=== PATIENT | male | born 1960 | race Caucasian/White ===

== ENCOUNTER 2017-08-13 12:05 | Day surgery (SDC) | payer MEDICARE ==
[2017-08-10 12:43] LABS: BASOPHILS % (AUTO) 0.3 % (0-1); EOSINOPHILS # (AUTO) 0.3 X10'3 (0-0.9); EOSINOPHILS % (AUTO) 3.7 % (0-6); HEMATOCRIT 51.3 % (42.0-52.0); LYMPHOCYTES # (AUTO) 1.3 X10'3 (1.1-4.8); LYMPHOCYTES % (AUTO) 14.4 % (21-51); MEAN CORPUSCULAR HEMOGLOBIN 25.6 PG (27.0-31.0); MEAN CORPUSCULAR HGB CONC 33.2 % (33.0-36.5); MONOCYTES # (AUTO) 0.5 X10'3 (0-0.9); MONOCYTES % (AUTO) 5.2 % (2-12); NEUTROPHILS % (AUTO) 76.4 % (42-75); PLATELET COUNT 261 X10'3 (140-440); RED BLOOD COUNT 6.65 X10'6 (4.70-6.10); RED CELL DISTRIBUTION WIDTH 16.6 % (11.5-14.5); WHITE BLOOD COUNT 9.1 X10'3 (4.5-11.0)
[2017-08-10 12:52] LABS: PARTIAL THROMBOPLASTIN TIME 27 SECONDS (22-32); PROTHROMBIN TIME 10.6 SECONDS (9.0-12.0)
[2017-08-10 12:53] LABS: ALBUMIN 3.9 G/DL (3.4-5.0); ANION GAP 10 (8-16); BLOOD UREA NITROGEN 25 MG/DL (7-18); BUN/CREATININE RATIO 17.1 (5.4-32.0); CALCIUM 9.7 MG/DL (8.5-10.1); CHLORIDE 101 MMOL/L (99-107); CREATININE 1.46 MG/DL (0.60-1.10); GLUCOSE 198 MG/DL (70-104); POTASSIUM 5.2 MMOL/L (3.5-5.1); SODIUM 136 MMOL/L (135-145); TOTAL CARBON DIOXIDE 25.2 MMOL/L (24-32); eGFR 50 ML/MIN
[2017-08-13] VITALS (8 sets, daily range): BP systolic 99–137; BP diastolic 53–89
[~2017-08-13] VITALS: Ht 182.9 cm; Wt 140.0 kg
[~2017-08-13 12:05] MED LIST: ASPI-1071 PO; CALC-793 PO; CANA300T PO; CETI10TA15 PO; DOCU-267 PO; DOCU100C40 PO; ESCI10TA PO; FENO145T38 PO; FISH12002 PO; FLEC100T PO; FLO0.4C PO; FLUT16SP2 BOTHNARES; FLUT1DIS INH; FURO40TA4 PO; GABA-330 PO; INSU100V13 SQ; LANTUS SQ; LIDO700A5 TP; LORA1TAB PO; METF500T7 PO; METO100T7 PO; NITR0.4T SL; NOR5T PO; OXYC-150 PO; OXYC40TA39 PO; PRAV40TA65 PO; WEL625T PO
[2017-08-13] MEDS ORDERED: diphenhydrAMINE 25mg capsule PO PRN (12:30)
[2017-08-13] MEDS ORDERED: normal saline 1000ml 1,000 ML IV SCH ×2 (12:30→16:08)
[2017-08-13] MEDS ORDERED: LORazepam 0.5 MG tablet PO PRN (12:30)
[2017-08-13] MEDS ORDERED: TEST200V IM (14:16)
[2017-08-13] MEDS ORDERED: ALB0.5UD IH (14:16)
[2017-08-13] MEDS ORDERED: OXYC15TA88 PO (14:16)
[2017-08-13] MEDS ORDERED: MULT-38 PO (14:16)
[2017-08-13] MEDS ORDERED: GENT30CR TOP (14:16)
[2017-08-13] MEDS ORDERED: UBID100C16 PO (14:16)
[2017-08-13] MEDS ORDERED: DAPA10TA PO (14:16)
[2017-08-13] MEDS ORDERED: GABA600T2 PO (14:16)
[2017-08-13] MEDS ORDERED: LISI2.5T2 PO (14:16)
[2017-08-13] MEDS ORDERED: POTA8TAB8 PO (14:16)
[2017-08-13] MEDS ORDERED: FAMO40TA7 PO (14:16)
[2017-08-13] MEDS ORDERED: LACT1CAP65 PO (14:16)
[2017-08-13] MEDS ORDERED: OMEG1CAP13 PO (14:16)
[2017-08-13] MEDS ORDERED: LIDOcaine 1%/PF (10mg/ml) 5ml vial ONE ×2 (14:19)
[2017-08-13] MEDS ORDERED: iohexol 350MG/ML 100ml bottle IV ONE (14:19)
[2017-08-13] MEDS ORDERED: LIDOcaine 1% 30ml vial 30 ML ONE (14:36)
[2017-08-13] MEDS ORDERED: fentaNYL/PF 50MCG/1 ML 2ML syringe ONE (14:59)
[2017-08-13] MEDS ORDERED: proCHLORperazine 10 MG/2 ml inj ONE (14:59)
[2017-08-13] MEDS ORDERED: midazolam 2 mg/2 ml injection ONE (14:59)
[2017-08-13] MEDS ORDERED: proCHLORperazine 10 MG/2 ml inj IV PRN (16:10)
[2017-08-13] MEDS ORDERED: HYDROcodone/acetaminophen 10/325mg tab PO PRN (16:10)
[2017-08-13] MEDS ORDERED: ondansetron/PF 4mg/2ml inj IV PRN (16:20)
[2017-08-13] MEDS ORDERED: OXAZEpam 15mg capsule PO PRN (16:20)
[2017-08-13] MEDS ORDERED: HYDROcodone/acetaminophen 5mg/325mg tablet PO PRN (16:25)
== END 2017-08-13 18:00 | disposition home or self-care (01) ==
LOC: SSTAY O 12:05
PROVIDERS: ATTEND Internal Medicine Interventional Cardiology
DX: I25.10 Atherosclerotic heart disease of native coronary artery without angina pectoris (principal); J44.9 Chronic obstructive pulmonary disease, unspecified; I11.0 Hypertensive heart disease with heart failure; I50.32 Chronic diastolic (congestive) heart failure; E78.5 Hyperlipidemia, unspecified; I27.20 Pulmonary hypertension, unspecified; G47.33 Obstructive sleep apnea (adult) (pediatric); F32.9 Major depressive disorder, single episode, unspecified; F41.9 Anxiety disorder, unspecified; I08.0 Rheumatic disorders of both mitral and aortic valves; I49.5 Sick sinus syndrome; I48.0 Paroxysmal atrial fibrillation; K21.9 Gastro-esophageal reflux disease without esophagitis; E11.40 Type 2 diabetes mellitus with diabetic neuropathy, unspecified; Z79.82 Long term (current) use of aspirin; Z87.891 Personal history of nicotine dependence; M19.90 Unspecified osteoarthritis, unspecified site; Z85.53 Personal history of malignant neoplasm of renal pelvis; Z95.0 Presence of cardiac pacemaker; Z90.5 Acquired absence of kidney; Z88.1 Allergy status to other antibiotic agents; Z88.6 Allergy status to analgesic agent; Z79.4 Long term (current) use of insulin; Z79.899 Other long term (current) drug therapy; Z86.79 Personal history of other diseases of the circulatory system; Z98.890 Other specified postprocedural states; Z88.8 Allergy status to other drugs, medicaments and biological substances
CPT/HCPCS: 36415; 80048; 82948; 85025; 85610; 85730; 93458; 99152; 99153; A6257; C1769; J0780; J1644; J2001; J2250; J3010; J3490; J7030; Q9967; A4620; Q0163

== ENCOUNTER 2017-10-09 13:29 | Inpatient (IN) | payer MEDICARE ==
[~2017-10-09] VITALS: Ht 182.9 cm; Wt 129.3 kg
[~2017-10-09 13:29] MED LIST changes: +ALB0.5UD IH; -CALC-793 PO; -CANA300T PO; +DAPA10TA PO; -DOCU100C40 PO; +FAMO40TA7 PO; -FISH12002 PO; -GABA-330 PO; +GABA600T2 PO; +GENT30CR TOP; +LACT1CAP65 PO; -LIDO700A5 TP; +LISI2.5T2 PO; -METF500T7 PO; +MULT-38 PO; +OMEG1CAP13 PO; -OXYC-150 PO; +OXYC15TA88 PO; +POTA8TAB8 PO; +TEST200V IM; +UBID100C16 PO
[2017-10-09 13:58] LABS: BASOPHILS % (AUTO) 0.1 % (0-1); EOSINOPHILS # (AUTO) 0.2 X10'3 (0-0.9); EOSINOPHILS % (AUTO) 2.4 % (0-6); HEMATOCRIT 40.9 % (42.0-52.0); HEMOGLOBIN 13.4 g/dl (14.0-17.9); LYMPHOCYTES # (AUTO) 0.6 X10'3 (1.1-4.8); LYMPHOCYTES % (AUTO) 7.2 % (21-51); MEAN CORPUSCULAR HEMOGLOBIN 25.5 PG (27.0-31.0); MEAN CORPUSCULAR HGB CONC 32.8 % (33.0-36.5); MEAN CORPUSCULAR VOLUME 77.7 FL (78-98); MEAN PLATELET VOLUME 8.8 FL (7.4-10.4); MONOCYTES # (AUTO) 0.8 X10'3 (0-0.9); NEUTROPHILS # (AUTO) 6.9 X10'3 (1.8-7.7); NEUTROPHILS % (AUTO) 81.3 % (42-75); PLATELET COUNT 224 X10'3 (140-440); RED BLOOD COUNT 5.26 X10'6 (4.70-6.10); RED CELL DISTRIBUTION WIDTH 17.5 % (11.5-14.5); WHITE BLOOD COUNT 8.5 X10'3 (4.5-11.0)
[2017-10-09 14:08] LABS: INR 1.1 INR; PARTIAL THROMBOPLASTIN TIME 28 SECONDS (22-32); PROTHROMBIN TIME 11.7 SECONDS (9.0-12.0)
[2017-10-09 14:13] LABS: ALANINE AMINOTRANSFERASE 27 U/L (12-78); ALBUMIN 3.4 G/DL (3.4-5.0); ALBUMIN/GLOBULIN RATIO 0.7 (1.1-1.5); ALKALINE PHOSPHATASE 80 IU/L (46-116); ANION GAP 11 (8-16); ASPARTATE AMINO TRANSFERASE 21 U/L (10-37); BILIRUBIN,TOTAL 0.5 MG/DL (0.1-1.0); BLOOD UREA NITROGEN 57 MG/DL (7-18); BUN/CREATININE RATIO 25.7 (5.4-32.0); CALCIUM 8.7 MG/DL (8.5-10.1); CHLORIDE 98 MMOL/L (99-107); CREATININE 2.22 MG/DL (0.60-1.10); GLUCOSE 191 MG/DL (70-104); POTASSIUM 5.2 MMOL/L (3.5-5.1); SODIUM 135 MMOL/L (135-145); TOTAL CARBON DIOXIDE 26.5 MMOL/L (24-32); TOTAL PROTEIN 8.3 G/DL (6.4-8.2); eGFR 31 ML/MIN
[2017-10-09] MEDS ORDERED: furosemide 10 MG/1 ML 10ml inj IV ONE ×2 (14:20→23:10)
[2017-10-09 15:08] LABS: MAGNESIUM 2.2 MG/DL (1.5-2.4)
[2017-10-09] MEDS ORDERED: dextrose ORAL solution 15 GM/59 ML bottle PO PRN ×2 (16:00)
[2017-10-09] MEDS ORDERED: magnesium hydroxide 30ml (MOM) UD suspension PO PRN (16:00)
[2017-10-09] MEDS ORDERED: potassium Cl 20 mEq SR tablet PO PRN ×2 (16:00)
[2017-10-09] MEDS ORDERED: HYDROcodone/acetaminophen 5mg/325mg tablet PO PRN (16:00)
[2017-10-09] MEDS ORDERED: morphine 4 MG/ML inj SYRINge IV PRN (16:00)
[2017-10-09] MEDS ORDERED: magnesium 2GM in 50ml NS 50 ML IV PRN (16:00)
[2017-10-09] MEDS ORDERED: glucagon, human recombinant 1mg kit SUBCUT PRN (16:00)
[2017-10-09] MEDS ORDERED: potassium Cl 40MEQ/NS 500ml 500 ML IV PRN ×2 (16:00)
[2017-10-09] MEDS ORDERED: dextrose 50%-water 50ml dispensing syringe IV PRN ×2 (16:00)
[2017-10-09] MEDS ORDERED: HYDROcodone/acetaminophen 10/325mg tab PO PRN (16:00)
[2017-10-09] MEDS ORDERED: magnesium 4gm in 100ml NS 100 ML IV PRN (16:00)
[2017-10-09] MEDS ORDERED: acetaminophen 325mg tablet PO PRN ×2 (16:00)
[2017-10-09] MEDS ORDERED: MESSAGE TO PHARMACY PO ONE (16:00)
[2017-10-09] MEDS: furosemide 10 MG/1 ML 10ml inj IV SCH (16:00)
[2017-10-09] MEDS ORDERED: mag hydrox/Alum hydrox/simeth 30ml oral suspension PO PRN (16:00)
[2017-10-09] MEDS ORDERED: ondansetron/PF 4mg/2ml inj IV PRN (16:00)
[2017-10-09] MEDS ORDERED: magnesium Cl slow-release 64mg tablet PO PRN (16:00)
[2017-10-09] MEDS ORDERED: ERGO500014 PO (16:26)
[2017-10-09] MEDS ORDERED: ICOS1CAP PO (16:28)
[2017-10-09] MEDS ORDERED: INSU100V9 SQ (16:30)
[2017-10-09] MEDS ORDERED: OXYC-658 PO (16:30)
[2017-10-09] MEDS ORDERED: nitroGLYCERIN 0.4mg SUBLingual tab SL PRN (16:35)
[2017-10-09 18:59] LABS: HEMOGLOBIN A1C 7.6 % (4.5-6.2)
[2017-10-09] MEDS: colesevelam 625mg tablet PO SCH (20:00)
[2017-10-09] MEDS: insulin glargine (Lantus) pen - multi-dose SQ SCH (20:00)
[2017-10-09] MEDS: ICOSAPENT ETHYL 1 GM PO SCH (20:00)
[2017-10-09] MEDS: gabapentin 400mg capsule PO SCH (20:20)
[2017-10-09] MEDS: docusate sod 100mg capsule PO SCH (20:20)
[2017-10-09] MEDS: oxyCODONE SR 40mg (sust release) tab PO SCH (20:21)
[2017-10-09] MEDS: heparin, porcine 5000 units/ml vial SQ SCH (20:21)
[2017-10-09] MEDS: fenofibrate 145mg tablet PO SCH (20:22)
[2017-10-09] MEDS: flecainide 50mg tablet PO SCH (20:23)
[2017-10-09] MEDS ORDERED: tamsulosin 0.4mg capsule PO SCH (21:00)
[2017-10-09] MEDS ORDERED: insulin glargine (Lantus) pen - multi-dose SQ SCH (21:00)
[2017-10-09] MEDS: albuterol 2.5 MG/3 ML nebule NEB PRN (23:07)
[2017-10-09 23:40] LABS: ABG BASE EXCESS 0.5 mmol/L (-2.0-3.0); ABG HCO3 23.6 mmol/L (22.0-26.0); ABG PCO2 (T) 35.6 mmHg (35.0-48.0); ABG PH (T) 7.445 (7.350-7.450); ABG PO2 (T) 99.1 mmHg (83-108); ALLEN'S TEST Positive; FCOHb 0.8 % (0.5-1.5); FMetHb 0.1 % (0.3-1.12); FO2Hb 96.1 % (94-100); MINUTE VOLUME 14 L/min; PATIENT TEMPERATURE 38.3; RESPIRATORY RATE 10 b/min; RESPIRATORY RATE (OBSERVED) 19 b/min; TOTAL HEMOGLOBIN 13.7 G/dl (14.0-18.0)
[2017-10-10] MEDS: oxyCODONE IR 5mg (immed. release) tablet PO PRN ×4 (00:31→21:22)
[2017-10-10 01:58] LABS: BASOPHILS % (AUTO) 0.1 % (0-1); EOSINOPHILS # (AUTO) 0.3 X10'3 (0-0.9); EOSINOPHILS % (AUTO) 3.1 % (0-6); HEMATOCRIT 40.7 % (42.0-52.0); HEMOGLOBIN 13.5 g/dl (14.0-17.9); LYMPHOCYTES # (AUTO) 0.7 X10'3 (1.1-4.8); LYMPHOCYTES % (AUTO) 6.3 % (21-51); MEAN CORPUSCULAR HEMOGLOBIN 25.7 PG (27.0-31.0); MEAN CORPUSCULAR HGB CONC 33.1 % (33.0-36.5); MEAN CORPUSCULAR VOLUME 77.7 FL (78-98); MEAN PLATELET VOLUME 8.4 FL (7.4-10.4); MONOCYTES % (AUTO) 9.2 % (2-12); NEUTROPHILS # (AUTO) 8.6 X10'3 (1.8-7.7); NEUTROPHILS % (AUTO) 81.3 % (42-75); PLATELET COUNT 231 X10'3 (140-440); RED BLOOD COUNT 5.24 X10'6 (4.70-6.10); RED CELL DISTRIBUTION WIDTH 17.7 % (11.5-14.5); WHITE BLOOD COUNT 10.6 X10'3 (4.5-11.0)
[2017-10-10 02:14] LABS: ALBUMIN 3.4 G/DL (3.4-5.0); ANION GAP 7 (8-16); BLOOD UREA NITROGEN 55 MG/DL (7-18); BUN/CREATININE RATIO 28.4 (5.4-32.0); CALCIUM 8.8 MG/DL (8.5-10.1); CHLORIDE 98 MMOL/L (99-107); CREATININE 1.94 MG/DL (0.60-1.10); GLUCOSE 145 MG/DL (70-104); MAGNESIUM 2.1 MG/DL (1.5-2.4); POTASSIUM 5.1 MMOL/L (3.5-5.1); SODIUM 137 MMOL/L (135-145); TOTAL CARBON DIOXIDE 32.4 MMOL/L (24-32); eGFR 36 ML/MIN
[2017-10-10] MEDS: oxyCODONE SR 40mg (sust release) tab PO SCH ×4 (04:42→21:38)
[2017-10-10] MEDS ORDERED: non-formulary drug (Ubidecarenone (Coq-10) 100 MG) PO SCH (08:00)
[2017-10-10] MEDS: colesevelam 625mg tablet PO SCH (08:00)
[2017-10-10] MEDS ORDERED: [UNRECOGNIZED DRUG - OTHER] PO SCH (08:00)
[2017-10-10] MEDS: K and/or MAG REPLACEMENT MC SCH (08:00)
[2017-10-10] MEDS: ICOSAPENT ETHYL 1 GM PO SCH (08:00)
[2017-10-10] MEDS: furosemide 10 MG/1 ML 10ml inj IV SCH ×3 (09:09→16:24)
[2017-10-10] MEDS: ertapenem sod inj 1 GM in normal saline 100ml IV soln 100 ML IV SCH (09:09)
[2017-10-10] MEDS: heparin, porcine 5000 units/ml vial SQ SCH ×2 (09:09→21:23)
[2017-10-10] MEDS: lisinopril 2.5mg tablet PO SCH (09:10)
[2017-10-10] MEDS: docusate sod 100mg capsule PO SCH ×2 (09:11→21:21)
[2017-10-10] MEDS: famotidine 20mg tablet PO SCH (09:11)
[2017-10-10] MEDS: multivitamins, therapeutics tablet PO SCH (09:11)
[2017-10-10] MEDS: aspirin 81mg tablet.DR PO SCH (09:11)
[2017-10-10] MEDS: lactobacillus rhamnosus 10,000 MMU CELLS/CAPSULE PO SCH (09:11)
[2017-10-10] MEDS: citalopram 20mg tablet PO SCH (09:12)
[2017-10-10] MEDS: atenolol 50mg tablet PO SCH (09:12)
[2017-10-10] MEDS: albuterol 2.5 MG/3 ML nebule NEB PRN (09:25)
[2017-10-10] MEDS: fluticasone nasal spray 16GM bottle NS SCH (09:32)
[2017-10-10] MEDS: fenofibrate 145mg tablet PO SCH (09:33)
[2017-10-10] MEDS: flecainide 50mg tablet PO SCH ×2 (09:34→21:24)
[2017-10-10] MEDS: pravastatin 40mg tablet PO SCH (09:34)
[2017-10-10] MEDS: OMEGA-3/DHA/EPA/FISH OIL 1 EACH CAPSULE.DR PO SCH (09:34)
[2017-10-10] MEDS: cetirizine 10mg tablet PO SCH (09:44)
[2017-10-10] MEDS: gabapentin 400mg capsule PO SCH ×2 (09:44→21:21)
[2017-10-10] MEDS: insulin glargine (Lantus) pen - multi-dose SQ SCH ×3 (10:39→22:16)
[2017-10-10] MEDS: methylPREDNISolone sod succ 125mg/2ml vial IV SCH (17:33)
[2017-10-10] MEDS: ipratropium/albuterol 3ml nebule NEB SCH ×2 (19:00→23:00)
[2017-10-10 20:15] VITALS: BP 136/69
[2017-10-10] MEDS: tamsulosin 0.4mg capsule PO SCH (21:19)
[2017-10-10] MEDS ORDERED: insulin glargine (Lantus) pen - multi-dose SQ ONE (21:52)
[2017-10-10] MEDS ORDERED: insulin Lispro (HumaLOG) vial - multi-dose SQ ONE (21:52)
[2017-10-11] VITALS: BP 114/64
[2017-10-11] MEDS: methylPREDNISolone sod succ 125mg/2ml vial IV SCH ×3 (00:16→19:35)
[2017-10-11] MEDS: furosemide 10 MG/1 ML 10ml inj IV SCH ×4 (00:20→23:16)
[2017-10-11] MEDS: oxyCODONE SR 40mg (sust release) tab PO SCH ×2 (02:26→23:12)
[2017-10-11 07:00] VITALS: BP 146/88
[2017-10-11] MEDS: K and/or MAG REPLACEMENT MC SCH (08:00)
[2017-10-11] MEDS: fluticasone nasal spray 16GM bottle NS SCH (08:00)
[2017-10-11] MEDS: ertapenem sod inj 1 GM in normal saline 100ml IV soln 100 ML IV SCH (08:43)
[2017-10-11] MEDS: ipratropium/albuterol 3ml nebule NEB SCH ×6 (08:46→23:19)
[2017-10-11] MEDS: heparin, porcine 5000 units/ml vial SQ SCH ×2 (08:53→19:42)
[2017-10-11] MEDS: fenofibrate 145mg tablet PO SCH (08:55)
[2017-10-11] MEDS: docusate sod 100mg capsule PO SCH ×2 (08:55→19:38)
[2017-10-11] MEDS: gabapentin 400mg capsule PO SCH ×2 (08:56→19:38)
[2017-10-11] MEDS: tamsulosin 0.4mg capsule PO SCH ×2 (08:56→19:39)
[2017-10-11] MEDS: atenolol 50mg tablet PO SCH (08:57)
[2017-10-11] MEDS: lisinopril 2.5mg tablet PO SCH (08:57)
[2017-10-11] MEDS: famotidine 20mg tablet PO SCH (08:57)
[2017-10-11] MEDS: cetirizine 10mg tablet PO SCH (08:58)
[2017-10-11] MEDS: aspirin 81mg tablet.DR PO SCH (08:58)
[2017-10-11] MEDS: lactobacillus rhamnosus 10,000 MMU CELLS/CAPSULE PO SCH (08:58)
[2017-10-11] MEDS: citalopram 20mg tablet PO SCH (08:58)
[2017-10-11] MEDS: OMEGA-3/DHA/EPA/FISH OIL 1 EACH CAPSULE.DR PO SCH (09:01)
[2017-10-11] MEDS: multivitamins, therapeutics tablet PO SCH (09:02)
[2017-10-11] MEDS: flecainide 50mg tablet PO SCH ×2 (09:02→19:38)
[2017-10-11] MEDS: pravastatin 40mg tablet PO SCH (09:02)
[2017-10-11] MEDS ORDERED: oxyCODONE SR 10mg (sust. release) tab PO SCH (09:09)
[2017-10-11] MEDS: insulin glargine (Lantus) pen - multi-dose SQ SCH ×2 (09:14→20:00)
[2017-10-11] MEDS: insulin Lispro (HumaLOG) vial - multi-dose SQ SCH ×3 (09:16→19:45)
[2017-10-11 11:36] LABS: BASOPHILS % (AUTO) 0.2 % (0-1); EOSINOPHILS # (AUTO) 0.1 X10'3 (0-0.9); EOSINOPHILS % (AUTO) 1.1 % (0-6); HEMATOCRIT 43.3 % (42.0-52.0); HEMOGLOBIN 14.1 g/dl (14.0-17.9); LYMPHOCYTES # (AUTO) 0.4 X10'3 (1.1-4.8); LYMPHOCYTES % (AUTO) 5.9 % (21-51); MEAN CORPUSCULAR HEMOGLOBIN 25.3 PG (27.0-31.0); MEAN CORPUSCULAR HGB CONC 32.6 % (33.0-36.5); MEAN CORPUSCULAR VOLUME 77.8 FL (78-98); MEAN PLATELET VOLUME 8.3 FL (7.4-10.4); MONOCYTES # (AUTO) 0.3 X10'3 (0-0.9); MONOCYTES % (AUTO) 4.4 % (2-12); NEUTROPHILS # (AUTO) 5.5 X10'3 (1.8-7.7); NEUTROPHILS % (AUTO) 88.4 % (42-75); PLATELET COUNT 254 X10'3 (140-440); RED BLOOD COUNT 5.57 X10'6 (4.70-6.10); RED CELL DISTRIBUTION WIDTH 17.4 % (11.5-14.5); WHITE BLOOD COUNT 6.2 X10'3 (4.5-11.0)
[2017-10-11 11:45] LABS: ALBUMIN 3.4 G/DL (3.4-5.0); ANION GAP 7 (8-16); BLOOD UREA NITROGEN 56 MG/DL (7-18); BUN/CREATININE RATIO 30.6 (5.4-32.0); CALCIUM 9.2 MG/DL (8.5-10.1); CHLORIDE 97 MMOL/L (99-107); CREATININE 1.83 MG/DL (0.60-1.10); GLUCOSE 266 MG/DL (70-104); MAGNESIUM 2.2 MG/DL (1.5-2.4); SODIUM 137 MMOL/L (135-145); eGFR 38 ML/MIN
[2017-10-11 12:00] VITALS: BP 136/74
[2017-10-11] MEDS: oxyCODONE IR 5mg (immed. release) tablet PO PRN (13:24)
[2017-10-11] MEDS ORDERED: oxyCODONE SR 40mg (sust release) tab PO SCH (14:32)
[2017-10-11] MEDS: metolazone 2.5mg tablet PO SCH (15:29)
[2017-10-11] MEDS ORDERED: oxyCODONE SR 40mg (sust release) tab PO ONE (16:35)
[2017-10-11 19:30] VITALS: BP 123/75
[2017-10-12] VITALS: BP 134/87
[2017-10-12] MEDS: ipratropium/albuterol 3ml nebule NEB SCH ×6 (02:42→22:53)
[2017-10-12] MEDS: oxyCODONE SR 40mg (sust release) tab PO SCH ×4 (05:33→23:04)
[2017-10-12 07:00] VITALS: BP 122/82
[2017-10-12] MEDS: oxyCODONE IR 5mg (immed. release) tablet PO PRN ×3 (07:46→20:20)
[2017-10-12] MEDS: K and/or MAG REPLACEMENT MC SCH (08:00)
[2017-10-12] MEDS: citalopram 20mg tablet PO SCH (08:02)
[2017-10-12] MEDS: flecainide 50mg tablet PO SCH ×2 (08:03→20:06)
[2017-10-12] MEDS: lactobacillus rhamnosus 10,000 MMU CELLS/CAPSULE PO SCH (08:03)
[2017-10-12] MEDS: cetirizine 10mg tablet PO SCH (08:03)
[2017-10-12] MEDS: atenolol 50mg tablet PO SCH (08:03)
[2017-10-12] MEDS: gabapentin 400mg capsule PO SCH ×2 (08:03→20:06)
[2017-10-12] MEDS: aspirin 81mg tablet.DR PO SCH (08:04)
[2017-10-12] MEDS: tamsulosin 0.4mg capsule PO SCH ×2 (08:04→20:05)
[2017-10-12] MEDS: multivitamins, therapeutics tablet PO SCH (08:04)
[2017-10-12] MEDS: fenofibrate 145mg tablet PO SCH (08:05)
[2017-10-12] MEDS: lisinopril 2.5mg tablet PO SCH (08:05)
[2017-10-12] MEDS: docusate sod 100mg capsule PO SCH ×2 (08:05→20:05)
[2017-10-12] MEDS: famotidine 20mg tablet PO SCH (08:05)
[2017-10-12] MEDS: heparin, porcine 5000 units/ml vial SQ SCH ×2 (08:10→20:09)
[2017-10-12] MEDS: insulin glargine (Lantus) pen - multi-dose SQ SCH ×2 (08:13→20:16)
[2017-10-12] MEDS: fluticasone nasal spray 16GM bottle NS SCH (08:19)
[2017-10-12] MEDS: ertapenem sod inj 1 GM in normal saline 100ml IV soln 100 ML IV SCH (08:48)
[2017-10-12] MEDS: methylPREDNISolone sod succ 125mg/2ml vial IV SCH ×2 (08:48→20:05)
[2017-10-12 09:03] LABS: ALBUMIN 3.5 G/DL (3.4-5.0); ANION GAP 7 (8-16); BLOOD UREA NITROGEN 66 MG/DL (7-18); BUN/CREATININE RATIO 38.4 (5.4-32.0); CALCIUM 9.5 MG/DL (8.5-10.1); CHLORIDE 95 MMOL/L (99-107); CREATININE 1.72 MG/DL (0.60-1.10); GLUCOSE 212 MG/DL (70-104); SODIUM 139 MMOL/L (135-145); eGFR 41 ML/MIN
[2017-10-12] MEDS: insulin Lispro (HumaLOG) vial - multi-dose SQ SCH ×3 (09:05→20:19)
[2017-10-12 09:08] LABS: POTASSIUM 4.5 MMOL/L (3.5-5.1)
[2017-10-12] MEDS: furosemide 10 MG/1 ML 10ml inj IV SCH ×3 (09:50→23:06)
[2017-10-12 11:00] VITALS: BP 119/75
[2017-10-12] MEDS: pravastatin 40mg tablet PO SCH (17:38)
[2017-10-12] MEDS: metolazone 2.5mg tablet PO SCH (17:38)
[2017-10-12] MEDS: omega-3 acid ethyl esters 1GM capsule PO SCH (17:39)
[2017-10-12 20:00] VITALS: BP 130/79
[2017-10-12] MEDS: temazepam 15mg capsule PO PRN (23:04)
[2017-10-13] VITALS: BP 106/78
[2017-10-13] MEDS: ipratropium/albuterol 3ml nebule NEB SCH ×6 (03:00→22:49)
[2017-10-13] MEDS: oxyCODONE SR 40mg (sust release) tab PO SCH ×4 (05:00→23:30)
[2017-10-13 06:06] LABS: ALBUMIN 3.4 G/DL (3.4-5.0); ANION GAP 5 (8-16); BLOOD UREA NITROGEN 86 MG/DL (7-18); BUN/CREATININE RATIO 37.9 (5.4-32.0); CALCIUM 9.5 MG/DL (8.5-10.1); CHLORIDE 90 MMOL/L (99-107); CREATININE 2.27 MG/DL (0.60-1.10); GLUCOSE 372 MG/DL (70-104); MAGNESIUM 2.2 MG/DL (1.5-2.4); POTASSIUM 4.2 MMOL/L (3.5-5.1); SODIUM 132 MMOL/L (135-145); TOTAL CARBON DIOXIDE 36.7 MMOL/L (24-32); eGFR 30 ML/MIN
[2017-10-13 07:00] VITALS: BP 127/88
[2017-10-13] MEDS: pravastatin 40mg tablet PO SCH (08:00)
[2017-10-13] MEDS: metolazone 2.5mg tablet PO SCH (08:00)
[2017-10-13] MEDS: K and/or MAG REPLACEMENT MC SCH (08:00)
[2017-10-13] MEDS: cetirizine 10mg tablet PO SCH (08:08)
[2017-10-13] MEDS: fenofibrate 145mg tablet PO SCH (08:08)
[2017-10-13] MEDS: multivitamins, therapeutics tablet PO SCH (08:08)
[2017-10-13] MEDS: tamsulosin 0.4mg capsule PO SCH ×2 (08:08→19:27)
[2017-10-13] MEDS: atenolol 50mg tablet PO SCH (08:09)
[2017-10-13] MEDS: aspirin 81mg tablet.DR PO SCH (08:09)
[2017-10-13] MEDS: lactobacillus rhamnosus 10,000 MMU CELLS/CAPSULE PO SCH (08:09)
[2017-10-13] MEDS: oxyCODONE IR 5mg (immed. release) tablet PO PRN ×2 (08:11→14:07)
[2017-10-13] MEDS: famotidine 20mg tablet PO SCH (08:11)
[2017-10-13] MEDS: citalopram 20mg tablet PO SCH (08:12)
[2017-10-13] MEDS: gabapentin 400mg capsule PO SCH ×2 (08:13→19:27)
[2017-10-13] MEDS: lisinopril 2.5mg tablet PO SCH (08:14)
[2017-10-13] MEDS: flecainide 50mg tablet PO SCH ×2 (08:14→19:27)
[2017-10-13] MEDS: fluticasone nasal spray 16GM bottle NS SCH (08:15)
[2017-10-13] MEDS: insulin glargine (Lantus) pen - multi-dose SQ SCH ×2 (08:35→19:36)
[2017-10-13] MEDS: furosemide 10 MG/1 ML 10ml inj IV SCH ×2 (08:37→17:27)
[2017-10-13] MEDS: methylPREDNISolone sod succ 125mg/2ml vial IV SCH (08:37)
[2017-10-13] MEDS: ertapenem sod inj 1 GM in normal saline 100ml IV soln 100 ML IV SCH (08:37)
[2017-10-13] MEDS: insulin Lispro (HumaLOG) vial - multi-dose SQ SCH ×3 (08:37→21:06)
[2017-10-13 09:11] LABS: ALBUMIN 3.5 G/DL (3.4-5.0); ANION GAP 5 (8-16); BLOOD UREA NITROGEN 86 MG/DL (7-18); BUN/CREATININE RATIO 41.5 (5.4-32.0); CALCIUM 9.5 MG/DL (8.5-10.1); CHLORIDE 90 MMOL/L (99-107); CREATININE 2.07 MG/DL (0.60-1.10); GLUCOSE 361 MG/DL (70-104); POTASSIUM 4.1 MMOL/L (3.5-5.1); SODIUM 134 MMOL/L (135-145); TOTAL CARBON DIOXIDE 38.6 MMOL/L (24-32); eGFR 33 ML/MIN
[2017-10-13 10:00] VITALS: BP 123/89
[2017-10-13 11:22] VITALS: BP 130/70
[2017-10-13 12:00] VITALS: BP 121/87
[2017-10-13] MEDS: heparin, porcine 5000 units/ml vial SQ SCH ×2 (14:07→19:27)
[2017-10-13] MEDS: docusate sod 100mg capsule PO SCH ×2 (14:11→19:27)
[2017-10-13] MEDS: methylPREDNISolone sod succ/PF 40mg inj. IV SCH (19:26)
[2017-10-13 20:00] VITALS: BP 141/81
[2017-10-14] VITALS: BP 130/74
[2017-10-14] MEDS ORDERED: furosemide 10 MG/1 ML 10ml inj IV SCH
[2017-10-14] MEDS: oxyCODONE SR 40mg (sust release) tab PO SCH ×4 (04:49→23:06)
[2017-10-14 06:14] LABS: ALBUMIN 3.6 G/DL (3.4-5.0); ANION GAP 6 (8-16); BLOOD UREA NITROGEN 100 MG/DL (7-18); BUN/CREATININE RATIO 47.2 (5.4-32.0); CALCIUM 9.7 MG/DL (8.5-10.1); CHLORIDE 88 MMOL/L (99-107); CREATININE 2.12 MG/DL (0.60-1.10); GLUCOSE 347 MG/DL (70-104); MAGNESIUM 2.5 MG/DL (1.5-2.4); POTASSIUM 4.3 MMOL/L (3.5-5.1); SODIUM 131 MMOL/L (135-145); TOTAL CARBON DIOXIDE 36.6 MMOL/L (24-32); eGFR 32 ML/MIN
[2017-10-14] MEDS: ipratropium/albuterol 3ml nebule NEB SCH ×4 (07:06→20:59)
[2017-10-14 07:19] VITALS: BP 116/80
[2017-10-14] MEDS: K and/or MAG REPLACEMENT MC SCH (08:00)
[2017-10-14] MEDS ORDERED: metolazone 2.5mg tablet PO SCH (08:00)
[2017-10-14] MEDS: insulin Lispro (HumaLOG) vial - multi-dose SQ SCH ×4 (08:57→21:15)
[2017-10-14] MEDS: insulin glargine (Lantus) pen - multi-dose SQ SCH ×2 (09:01→19:30)
[2017-10-14] MEDS: oxyCODONE IR 5mg (immed. release) tablet PO PRN ×2 (09:07→20:56)
[2017-10-14] MEDS: pravastatin 40mg tablet PO SCH (09:11)
[2017-10-14] MEDS: fenofibrate 145mg tablet PO SCH (09:11)
[2017-10-14] MEDS: lisinopril 2.5mg tablet PO SCH (09:12)
[2017-10-14] MEDS: omega-3 acid ethyl esters 1GM capsule PO SCH (09:12)
[2017-10-14] MEDS: aspirin 81mg tablet.DR PO SCH (09:13)
[2017-10-14] MEDS: flecainide 50mg tablet PO SCH ×2 (09:13→19:33)
[2017-10-14] MEDS: atenolol 50mg tablet PO SCH (09:13)
[2017-10-14] MEDS: citalopram 20mg tablet PO SCH (09:13)
[2017-10-14] MEDS: famotidine 20mg tablet PO SCH (09:13)
[2017-10-14] MEDS: tamsulosin 0.4mg capsule PO SCH ×2 (09:14→19:35)
[2017-10-14] MEDS: lactobacillus rhamnosus 10,000 MMU CELLS/CAPSULE PO SCH (09:14)
[2017-10-14] MEDS: docusate sod 100mg capsule PO SCH ×2 (09:14→19:35)
[2017-10-14] MEDS: cetirizine 10mg tablet PO SCH (09:14)
[2017-10-14] MEDS: multivitamins, therapeutics tablet PO SCH (09:15)
[2017-10-14] MEDS: ertapenem sod inj 1 GM in normal saline 100ml IV soln 100 ML IV SCH (09:15)
[2017-10-14] MEDS: fluticasone nasal spray 16GM bottle NS SCH (09:16)
[2017-10-14] MEDS: gabapentin 400mg capsule PO SCH ×2 (09:16→19:35)
[2017-10-14] MEDS: heparin, porcine 5000 units/ml vial SQ SCH ×2 (09:18→19:35)
[2017-10-14] MEDS: methylPREDNISolone sod succ/PF 40mg inj. IV SCH ×2 (09:21→19:32)
[2017-10-14 13:40] VITALS: BP 116/82
[2017-10-14 17:42] VITALS: BP 133/73
[2017-10-14] MEDS: furosemide 10 MG/1 ML 10ml inj IV SCH (19:33)
[2017-10-15] MEDS: ipratropium/albuterol 3ml nebule NEB SCH ×7 (00:01→22:49)
[2017-10-15] MEDS: temazepam 15mg capsule PO PRN (00:26)
[2017-10-15] MEDS: oxyCODONE SR 40mg (sust release) tab PO SCH ×4 (04:25→23:08)
[2017-10-15 07:08] VITALS: BP 123/89
[2017-10-15 07:23] LABS: ALBUMIN 3.6 G/DL (3.4-5.0); ANION GAP 4 (8-16); BLOOD UREA NITROGEN 88 MG/DL (7-18); BUN/CREATININE RATIO 49.7 (5.4-32.0); CALCIUM 10.2 MG/DL (8.5-10.1); CHLORIDE 92 MMOL/L (99-107); CREATININE 1.77 MG/DL (0.60-1.10); GLUCOSE 155 MG/DL (70-104); POTASSIUM 4.2 MMOL/L (3.5-5.1); SODIUM 138 MMOL/L (135-145); eGFR 40 ML/MIN
[2017-10-15 07:30] LABS: TOTAL CARBON DIOXIDE 42.1 MMOL/L (24-32)
[2017-10-15 08:00] VITALS: BP 123/89
[2017-10-15] MEDS: K and/or MAG REPLACEMENT MC SCH (08:00)
[2017-10-15 08:25] LABS: ABG BASE EXCESS 15.1 mmol/L (-2.0-3.0); ABG HCO3 42.7 mmol/L (22.0-26.0); ABG OXYGEN SATURATION 88.2 % (95-98); ABG PCO2 (T) 58.6 mmHg (35.0-48.0); ABG PO2 (T) 54.2 mmHg (83-108); ALLEN'S TEST Positive; FCOHb 0.3 % (0.5-1.5); FLOW 2 L/min; FMetHb 0.5 % (0.3-1.12); FO2Hb 87.5 % (94-100); TOTAL HEMOGLOBIN 19.1 G/dl (14.0-18.0)
[2017-10-15] MEDS: lactobacillus rhamnosus 10,000 MMU CELLS/CAPSULE PO SCH (08:58)
[2017-10-15] MEDS: famotidine 20mg tablet PO SCH (08:59)
[2017-10-15] MEDS: flecainide 50mg tablet PO SCH ×2 (08:59→19:17)
[2017-10-15] MEDS: citalopram 20mg tablet PO SCH (08:59)
[2017-10-15] MEDS: oxyCODONE IR 5mg (immed. release) tablet PO PRN (09:00)
[2017-10-15] MEDS: omega-3 acid ethyl esters 1GM capsule PO SCH (09:01)
[2017-10-15] MEDS: aspirin 81mg tablet.DR PO SCH (09:01)
[2017-10-15] MEDS: multivitamins, therapeutics tablet PO SCH (09:01)
[2017-10-15] MEDS: docusate sod 100mg capsule PO SCH ×2 (09:02→19:18)
[2017-10-15] MEDS: lisinopril 2.5mg tablet PO SCH (09:02)
[2017-10-15] MEDS: gabapentin 400mg capsule PO SCH ×2 (09:02→19:18)
[2017-10-15] MEDS: tamsulosin 0.4mg capsule PO SCH ×2 (09:03→19:18)
[2017-10-15] MEDS: cetirizine 10mg tablet PO SCH (09:03)
[2017-10-15] MEDS: pravastatin 40mg tablet PO SCH (09:04)
[2017-10-15] MEDS: fenofibrate 145mg tablet PO SCH (09:04)
[2017-10-15] MEDS: atenolol 50mg tablet PO SCH (09:04)
[2017-10-15] MEDS: ertapenem sod inj 1 GM in normal saline 100ml IV soln 100 ML IV SCH (09:08)
[2017-10-15] MEDS: heparin, porcine 5000 units/ml vial SQ SCH ×2 (09:19→19:19)
[2017-10-15] MEDS: fluticasone nasal spray 16GM bottle NS SCH (09:19)
[2017-10-15] MEDS: insulin glargine (Lantus) pen - multi-dose SQ SCH ×2 (09:25→19:14)
[2017-10-15] MEDS: insulin Lispro (HumaLOG) vial - multi-dose SQ SCH ×4 (09:29→21:08)
[2017-10-15] MEDS: methylPREDNISolone sod succ/PF 40mg inj. IV SCH (09:34)
[2017-10-15] MEDS: furosemide 10 MG/1 ML 10ml inj IV SCH (09:34)
[2017-10-15 11:48] VITALS: BP 129/79
[2017-10-15] MEDS: methylPREDNISolone sod succ 125mg/2ml vial IV SCH ×2 (17:07→23:08)
[2017-10-15] MEDS: furosemide 40mg/4ml inj IV SCH (19:19)
[2017-10-15 20:00] VITALS: BP 139/84
[2017-10-15 23:51] VITALS: BP 117/84
[2017-10-16] MEDS: ipratropium/albuterol 3ml nebule NEB SCH ×3 (02:52→11:38)
[2017-10-16] MEDS: oxyCODONE SR 40mg (sust release) tab PO SCH ×2 (04:54→11:00)
[2017-10-16 05:42] LABS: ALBUMIN 3.3 G/DL (3.4-5.0); ANION GAP 9 (8-16); BLOOD UREA NITROGEN 97 MG/DL (7-18); BUN/CREATININE RATIO 47.3 (5.4-32.0); CALCIUM 9.3 MG/DL (8.5-10.1); CHLORIDE 89 MMOL/L (99-107); CREATININE 2.05 MG/DL (0.60-1.10); GLUCOSE 448 MG/DL (70-104); POTASSIUM 4.7 MMOL/L (3.5-5.1); SODIUM 132 MMOL/L (135-145); TOTAL CARBON DIOXIDE 34.4 MMOL/L (24-32); eGFR 34 ML/MIN
[2017-10-16] MEDS: ertapenem sod inj 1 GM in normal saline 100ml IV soln 100 ML IV SCH (07:13)
[2017-10-16] MEDS: furosemide 40mg/4ml inj IV SCH (07:14)
[2017-10-16] MEDS: methylPREDNISolone sod succ 125mg/2ml vial IV SCH (07:14)
[2017-10-16] MEDS: fluticasone nasal spray 16GM bottle NS SCH (07:17)
[2017-10-16] MEDS: citalopram 20mg tablet PO SCH (07:18)
[2017-10-16] MEDS: docusate sod 100mg capsule PO SCH (07:18)
[2017-10-16] MEDS: lactobacillus rhamnosus 10,000 MMU CELLS/CAPSULE PO SCH (07:18)
[2017-10-16] MEDS: aspirin 81mg tablet.DR PO SCH (07:18)
[2017-10-16] MEDS: gabapentin 400mg capsule PO SCH (07:19)
[2017-10-16] MEDS: tamsulosin 0.4mg capsule PO SCH (07:19)
[2017-10-16] MEDS: omega-3 acid ethyl esters 1GM capsule PO SCH (07:19)
[2017-10-16] MEDS: famotidine 20mg tablet PO SCH (07:20)
[2017-10-16] MEDS: pravastatin 40mg tablet PO SCH (07:20)
[2017-10-16] MEDS: lisinopril 2.5mg tablet PO SCH (07:21)
[2017-10-16] MEDS: flecainide 50mg tablet PO SCH (07:21)
[2017-10-16] MEDS: fenofibrate 145mg tablet PO SCH (07:21)
[2017-10-16] MEDS: atenolol 50mg tablet PO SCH (07:21)
[2017-10-16] MEDS: multivitamins, therapeutics tablet PO SCH (07:21)
[2017-10-16] MEDS: cetirizine 10mg tablet PO SCH (07:22)
[2017-10-16] MEDS: heparin, porcine 5000 units/ml vial SQ SCH (07:29)
[2017-10-16] MEDS: insulin glargine (Lantus) pen - multi-dose SQ SCH (07:31)
[2017-10-16 07:47] VITALS: BP 124/94
[2017-10-16] MEDS: K and/or MAG REPLACEMENT MC SCH (08:00)
[2017-10-16] MEDS: insulin Lispro (HumaLOG) vial - multi-dose SQ SCH (08:56)
[2017-10-16] MEDS ORDERED: FURO40TA4 PO (13:13)
[2017-10-16] MEDS ORDERED: PRED10TA23 PO (13:15)
== END 2017-10-16 14:12 | disposition home or self-care (01) | DRG 291 ==
LOC: ER 13:30 → ED HOLD 16:00 → EDBEDREQ 10-10 09:55 → SUR 3N 10-10 20:22
PROVIDERS: ADMIT Hospitalist; ATTEND Internal Medicine
PROC: 5A09357 Assistance with Respiratory Ventilation, Less than 24 Consecutive Hours, Continuous Positive Airway Pressure (ICD-10-PCS; principal; 2017-10-09)
PROC: 5A09357 Assistance with Respiratory Ventilation, Less than 24 Consecutive Hours, Continuous Positive Airway Pressure (ICD-10-PCS; 2017-10-10)
PROC: 5A09457 Assistance with Respiratory Ventilation, 24-96 Consecutive Hours, Continuous Positive Airway Pressure (ICD-10-PCS; 2017-10-12)
PROC: 5A09357 Assistance with Respiratory Ventilation, Less than 24 Consecutive Hours, Continuous Positive Airway Pressure (ICD-10-PCS; 2017-10-16)
DX: I13.0 Hypertensive heart and chronic kidney disease with heart failure and stage 1 through stage 4 chronic kidney disease, or unspecified chronic kidney disease (principal); I50.33 Acute on chronic diastolic (congestive) heart failure; J96.21 Acute and chronic respiratory failure with hypoxia; E87.3 Alkalosis; N17.9 Acute kidney failure, unspecified; E11.22 Type 2 diabetes mellitus with diabetic chronic kidney disease; E66.01 Morbid (severe) obesity due to excess calories; E11.42 Type 2 diabetes mellitus with diabetic polyneuropathy; I27.20 Pulmonary hypertension, unspecified; N18.4 Chronic kidney disease, stage 4 (severe); J96.22 Acute and chronic respiratory failure with hypercapnia; J44.1 Chronic obstructive pulmonary disease with (acute) exacerbation; J44.0 Chronic obstructive pulmonary disease with (acute) lower respiratory infection; M86.8X7 Other osteomyelitis, ankle and foot; E11.69 Type 2 diabetes mellitus with other specified complication; E11.621 Type 2 diabetes mellitus with foot ulcer; L97.509 Non-pressure chronic ulcer of other part of unspecified foot with unspecified severity; E87.5 Hyperkalemia; G47.30 Sleep apnea, unspecified; J20.9 Acute bronchitis, unspecified; E78.5 Hyperlipidemia, unspecified; E78.00 Pure hypercholesterolemia, unspecified; F41.0 Panic disorder [episodic paroxysmal anxiety]; G47.33 Obstructive sleep apnea (adult) (pediatric); I48.91 Unspecified atrial fibrillation; K21.9 Gastro-esophageal reflux disease without esophagitis; F32.9 Major depressive disorder, single episode, unspecified; G89.29 Other chronic pain; M19.90 Unspecified osteoarthritis, unspecified site; Z90.5 Acquired absence of kidney; Z95.0 Presence of cardiac pacemaker; Z90.49 Acquired absence of other specified parts of digestive tract; Z79.4 Long term (current) use of insulin; Z79.82 Long term (current) use of aspirin; Z79.899 Other long term (current) drug therapy; Z88.8 Allergy status to other drugs, medicaments and biological substances; Z88.1 Allergy status to other antibiotic agents; Z85.528 Personal history of other malignant neoplasm of kidney; Z87.891 Personal history of nicotine dependence; Z68.38 Body mass index [BMI] 38.0-38.9, adult
CPT/HCPCS: 36415; 36600; 71046; 80048; 80053; 82803; 82948; 83036; 83735; 83880; 84484; 85018; 85025; 85610; 85730; 87070; 93005; 93306; 94640; 94660; 94760; 96374; 97110; 97116; 97161; 99285; A4649; A6196; A6212; A6223; A6446; A6449; J1335; J1644; J1815; J1940; J2920; J2930; J7030

== ENCOUNTER 2017-10-28 08:52 | Emergency (ER) | payer MEDICARE ==
[~2017-10-28] VITALS: Ht 182.9 cm; Wt 138.0 kg
[~2017-10-28 08:52] MED LIST changes: -DAPA10TA PO; +ERGO500014 PO; +INSU100V9 SQ; -LANTUS SQ; +OXYC-658 PO; -OXYC15TA88 PO; +PRED10TA23 PO; -WEL625T PO
[2017-10-28 09:18] LABS: BASOPHILS % (AUTO) 0.2 % (0-1); EOSINOPHILS # (AUTO) 0.3 X10'3 (0-0.9); EOSINOPHILS % (AUTO) 1.8 % (0-6); HEMATOCRIT 43.4 % (42.0-52.0); HEMOGLOBIN 14.3 g/dl (14.0-17.9); LYMPHOCYTES # (AUTO) 1.2 X10'3 (1.1-4.8); LYMPHOCYTES % (AUTO) 7.8 % (21-51); MEAN CORPUSCULAR HEMOGLOBIN 25.7 PG (27.0-31.0); MEAN CORPUSCULAR HGB CONC 32.9 % (33.0-36.5); MEAN CORPUSCULAR VOLUME 78.1 FL (78-98); MEAN PLATELET VOLUME 8.8 FL (7.4-10.4); MONOCYTES # (AUTO) 0.8 X10'3 (0-0.9); MONOCYTES % (AUTO) 5.2 % (2-12); NEUTROPHILS # (AUTO) 12.9 X10'3 (1.8-7.7); PLATELET COUNT 210 X10'3 (140-440); RED BLOOD COUNT 5.55 X10'6 (4.70-6.10); RED CELL DISTRIBUTION WIDTH 17.8 % (11.5-14.5); WHITE BLOOD COUNT 15.2 X10'3 (4.5-11.0)
[2017-10-28 09:29] LABS: PARTIAL THROMBOPLASTIN TIME 29 SECONDS (22-32); PROTHROMBIN TIME 10.4 SECONDS (9.0-12.0)
[2017-10-28 09:34] LABS: ALANINE AMINOTRANSFERASE 32 U/L (12-78); ALBUMIN 2.9 G/DL (3.4-5.0); ALBUMIN/GLOBULIN RATIO 0.6 (1.1-1.5); ALKALINE PHOSPHATASE 63 IU/L (46-116); ANION GAP 9 (8-16); ASPARTATE AMINO TRANSFERASE 17 U/L (10-37); BILIRUBIN,TOTAL 0.9 MG/DL (0.1-1.0); BLOOD UREA NITROGEN 26 MG/DL (7-18); BUN/CREATININE RATIO 21.8 (5.4-32.0); CALCIUM 8.7 MG/DL (8.5-10.1); CHLORIDE 100 MMOL/L (99-107); CREATININE 1.19 MG/DL (0.60-1.10); GLUCOSE 213 MG/DL (70-104); POTASSIUM 4.7 MMOL/L (3.5-5.1); SODIUM 135 MMOL/L (135-145); TOTAL CARBON DIOXIDE 26.4 MMOL/L (24-32); TOTAL PROTEIN 7.4 G/DL (6.4-8.2); eGFR 63 ML/MIN
[2017-10-28] MEDS ORDERED: furosemide 10 MG/1 ML 10ml inj IV ONE (10:15)
[2017-10-28 10:22] LABS: MAGNESIUM 2.1 MG/DL (1.5-2.4)
[2017-10-28] MEDS ORDERED: oxyCODONE SR 10mg (sust. release) tab PO ONE (11:30)
[2017-10-28 12:17] VITALS: BP 139/97
[2017-10-30] MEDS ORDERED: HYDR30CR99 TP (23:26)
[2017-10-30] MEDS ORDERED: OXYC15TA88 PO (23:26)
[2017-10-30] MEDS ORDERED: BUME0.5T5 PO (23:26)
[2017-10-30] MEDS ORDERED: CITA20TA19 PO (23:26)
[2017-10-30] MEDS ORDERED: OXYC40TA PO (23:26)
[2017-10-30] MEDS ORDERED: SPIR25TA PO (23:26)
== END 2017-10-28 12:18 | disposition home or self-care (01) ==
LOC: ER 08:53
DX: S30.1XXA Contusion of abdominal wall, initial encounter (principal); I11.0 Hypertensive heart disease with heart failure; I50.9 Heart failure, unspecified; R63.5 Abnormal weight gain; E11.42 Type 2 diabetes mellitus with diabetic polyneuropathy; E78.00 Pure hypercholesterolemia, unspecified; I48.91 Unspecified atrial fibrillation; G89.29 Other chronic pain; M19.90 Unspecified osteoarthritis, unspecified site; Z95.0 Presence of cardiac pacemaker; Z79.82 Long term (current) use of aspirin; Z79.84 Long term (current) use of oral hypoglycemic drugs; Z88.8 Allergy status to other drugs, medicaments and biological substances; Z79.899 Other long term (current) drug therapy; Z68.41 Body mass index [BMI] 40.0-44.9, adult; X58.XXXA Exposure to other specified factors, initial encounter; Y93.89 Activity, other specified; Y92.89 Other specified places as the place of occurrence of the external cause; Y99.8 Other external cause status
CPT/HCPCS: 36415; 71045; 80053; 83735; 83880; 84484; 85025; 85610; 85730; 93005; 96374; 99285; J1940